=== PATIENT | female | born 1985 | race Caucasian/White ===

== ENCOUNTER 2018-04-27 09:38 | Inpatient (IN) | payer OTHER ==
[2018-04-27] MEDS ORDERED: OXYTOCIN 30 UNITS/LR 500 ML IV ×2 (10:30)
[2018-04-27] MEDS ORDERED: CARBOPROST 250 MCG INJ IM (10:30)
[2018-04-27] MEDS ORDERED: MISOPROSTOL 200 MCG TAB PR (10:30)
[2018-04-27] MEDS ORDERED: BUTORPHANOL 2 MG INJ IV (10:30)
[2018-04-27] MEDS ORDERED: METHYLERGONOVINE 0.2 MG INJ IM (10:30)
[2018-04-27] MEDS: LACTATED RINGER'S 1,000 ML IV ×3 (11:09→21:00)
[2018-04-27 11:14] LABS: ADD MAN DIFF? NO
[2018-04-27 11:20] LABS: BASOPHILS % 0.4 % (0.0-2.0); EOSINOPHILS # 0.1 10^3/ul (0.0-0.5); EOSINOPHILS % 0.7 % (0.0-7.0); HEMATOCRIT 37.4 % (37.0-47.0); HEMOGLOBIN 12.9 g/dl (12.0-16.0); LYMPHOCYTES % 20.7 % (15.0-51.0); MEAN CORPUSCULAR HEMOGLOBIN 29.5 pg (29.0-33.0); MEAN CORPUSCULAR HGB CONC 34.5 g/dl (32.0-37.0); MEAN CORPUSCULAR VOLUME 85.6 fl (82.0-101.0); MEAN PLATELET VOLUME 11.7 fl (7.4-10.4); MONOCYTE # 0.7 10^3/ul (0.3-0.9); MONOCYTES % 7.2 % (0.0-11.0); NEUTROPHIL # 6.7 10^3/ul (1.6-7.5); NEUTROPHILS % 69.6 % (39.0-77.0); PLATELET COUNT 254 10^3/UL (140-415); RED BLOOD COUNT 4.37 10^6/ul (4.20-5.40); RED CELL DISTRIBUTION WIDTH 14.4 % (11.5-14.5)
[2018-04-27 11:20] LABS: WHITE BLOOD COUNT 9.6 10^3/ul (4.8-10.8)
[2018-04-27 11:41] LABS: INR 0.93; PROTIME 12.6 Sec (11.9-14.9)
[2018-04-27 11:42] LABS: PARTIAL THROMBOPLASTIN TIME 26.2 Sec (23.0-35.0)
[2018-04-27] MEDS: OXYTOCIN 30 UNITS/LR 500 ML IV ×2 (15:08→23:25)
[2018-04-27 15:37] LABS: RAPID PLASMA REAGIN NONREACTIVE (NR)
[2018-04-27] MEDS ORDERED: DIPHENHYDRAMINE 50 MG INJ IV (21:00)
[2018-04-27] MEDS ORDERED: ONDANSETRON 4 MG INJ IV (21:00)
[2018-04-27] MEDS ORDERED: KETOROLAC 30 MG INJ IV (21:00)
[2018-04-27] MEDS ORDERED: NALOXONE (0.4 MG/ML) INJ IV (21:00)
[2018-04-27] MEDS ORDERED: ZOLPIDEM 5 MG TAB PO (21:00)
[2018-04-27] MEDS ORDERED: HYDROmorphONE 0.5 MG/0.5 ML SYG IV ×2 (21:00)
[2018-04-27] MEDS: FENTAnyl 2MCG/ML-ROPIV 0.2% 100 ML BAG EPI (22:05)
[2018-04-28] MEDS: LACTATED RINGER'S 1,000 ML IV* ×2 (00:42→03:36)
[2018-04-28] MEDS ORDERED: ACETAMINOPHEN 325 MG TAB PO (01:00)
[2018-04-28] MEDS ORDERED: CARBOPROST 250 MCG INJ IM (01:00)
[2018-04-28] MEDS ORDERED: OXYTOCIN 30 UNITS/LR 500 ML IV (01:00)
[2018-04-28] MEDS ORDERED: MISOPROSTOL 200 MCG TAB PR (01:00)
[2018-04-28] MEDS ORDERED: METHYLERGONOVINE 0.2 MG INJ IM (01:00)
[2018-04-28] MEDS ORDERED: DIBUCAINE 1% 30 GM OINT TOP (01:00)
[2018-04-28] MEDS ORDERED: LANOLIN 7 GM TUBE TOP (01:00)
[2018-04-28] MEDS: LIDOCAINE 0.5% (SDV) 50 ML INJ INFIL (01:51)
[2018-04-28] MEDS: HYDROCODONE/APAP (5/325) TAB PO (03:41)
[2018-04-28] MEDS: WITCH HAZEL/GLYCERIN PAD PR (03:46)
[2018-04-28] MEDS: BENZOCAINE 20% 56 ML SPRAY TOP (03:47)
[2018-04-28] MEDS: IBUPROFEN 600 MG TAB PO ×3 (05:30→17:07)
[2018-04-28 08:56] LABS: ADD MAN DIFF? NO
[2018-04-28 09:03] LABS: BASOPHILS % 0.3 % (0.0-2.0); EOSINOPHILS # 0.1 10^3/ul (0.0-0.5); EOSINOPHILS % 0.4 % (0.0-7.0); HEMOGLOBIN 11.5 g/dl (12.0-16.0); LYMPHOCYTES # 2.1 10^3/ul (0.8-2.9); LYMPHOCYTES % 15.5 % (15.0-51.0); MEAN CORPUSCULAR HEMOGLOBIN 29.2 pg (29.0-33.0); MEAN CORPUSCULAR HGB CONC 33.8 g/dl (32.0-37.0); MEAN CORPUSCULAR VOLUME 86.3 fl (82.0-101.0); MEAN PLATELET VOLUME 11.6 fl (7.4-10.4); MONOCYTES % 7.3 % (0.0-11.0); PLATELET COUNT 215 10^3/UL (140-415); RED BLOOD COUNT 3.94 10^6/ul (4.20-5.40); RED CELL DISTRIBUTION WIDTH 14.2 % (11.5-14.5)
[2018-04-28 09:03] LABS: WHITE BLOOD COUNT 13.2 10^3/ul (4.8-10.8)
[2018-04-28] MEDS: SENNA/DOCUSATE NA (8.6MG/50MG) TAB PO ×2 (09:31→21:15)
[2018-04-29] MEDS: IBUPROFEN 600 MG TAB PO ×3 (00:44→12:07)
[2018-04-29] MEDS ORDERED: DIPHTH/TET/ACEL PERTUSS (ADULT) 0.5 ML VIAL IM* (09:00)
[2018-04-29] MEDS: SENNA/DOCUSATE NA (8.6MG/50MG) TAB PO (12:07)
== END 2018-04-29 15:25 | disposition home or self-care (01) | DRG 807 ==
LOC: OBT 09:38 → PP1 04-28 00:34 → L-D 09:38 → OBT 10:30 → L-D 10:20
PROVIDERS: Obstetrics & Gynecology
PROC: 10E0XZZ Delivery of Products of Conception, External Approach (ICD-10-PCS; principal; 2018-04-27)
PROC: 3E033VJ Introduction of Other Hormone into Peripheral Vein, Percutaneous Approach (ICD-10-PCS; 2018-04-27)
DX: O69.81X0 Labor and delivery complicated by cord around neck, without compression, not applicable or unspecified (principal); Z37.0 Single live birth; O70.0 First degree perineal laceration during delivery; O66.0 Obstructed labor due to shoulder dystocia; Z3A.39 39 weeks gestation of pregnancy
CPT/HCPCS: 62319; 76815; 85025; 85610; 85730; 86592; 86850; 86900; 86901; 99464